=== PATIENT | male | born 1975 | race Caucasian/White ===

== ENCOUNTER 2020-06-03 09:58 | Outpatient (RCR) | payer BC, SELFPAY ==
--- NOTE | 2020-06-03 11:24 | PTOPEVAL ---
Thank you for referring Ryley Smith to [facility].? The patient is scheduled to be seen for therapy? ____x/week for ___ weeks. Please review, sign, date and return this plan of care YORDAN. I agree with and certify that the following plan of care is medically necessary. Referring Physician Date Admitting Provider: Attending Provider: Keyur Mancilla MD Referring Provider: *PT Outpatient Evaluation Start: 06/03/20 10:06 Freq: Status: Active Protocol: Document 06/03/20 10:06 KHALIDA (Rec: 06/03/20 11:24 KHALIDA [email or web address]) Therapy Assessment Status Assessment Status Assessment Status Evaluation Evaluation Information Problem Diagnosis left shoulder adhesive capsulitis Onset 05/27/20 Subjective Information Pt. reports that he felt Query Text:As Reported By Patient/ extreme pain in the left Family shoulder last week. He reports thought he had a pinched nerve. He reports that he has been taking ibuprofen. He reports that it has gotten better over the past week but still something is wrong. He reports stiffness with reaching overhead and behind the head is painful. 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 He reports that his goal is to decrease his pain. 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 Hand Dominance Right Activity of Daily Living Ability Independent Indoor/Home Mobility Independent Community Mobility Independent Stairs Ability Independent Functional Cognition (Planning, Shopping Independent , Taking Medications) Cooking Yes Cleaning Yes Laundry Yes Shopping Yes Driving Yes Pain Assessment Pain Scale Pain Scale Used Numeric (1 - 10) Self Report Pain Assessment Left Shoulder(s) Reported Pain Level 5 Pain Aggravating Factors Exercise/Activity Pain Score Pain Score 5: Self Report Upper Extremity Range of Motion General Upper Extremity Range of Motion Gross Upper Extremity Range of Motion left shoulder flexion 115 Comments degrees left shoulder ER 72 degrees
--- NOTE | 2020-07-21 12:44 | PCPTNOTE ---
Mr. Smith attended a total of 4 treatment sessions from 06/03/20 to 06/11/20. He has failed to return to the clinic and cannot be contacted via phone. He will be discharged from our care. Refer to the last daily note for pt. discharge status. Thank you for the referral of this pt. Sunil Hernandez, MPT
== END 2020-09-01 23:59 | disposition home or self-care (01) ==
LOC: CHSPT 09:58
PROVIDERS: PCP Internal Medicine; Visit Provider Internal Medicine
DX: M75.02 Adhesive capsulitis of left shoulder (principal)
CPT/HCPCS: 97014; 97110; 97161; G0283

== ENCOUNTER 2021-08-15 10:44 | Outpatient (CLI) | payer BC, SELFPAY ==
--- NOTE | ~2021-08-15 | XR_ITS ---
EXAMINATION: XR ankle RT min 3V INDICATION: Right flank pain, initial encounter TECHNIQUE: Four views of the right ankle are obtained. COMPARISON: None available FINDINGS: There is an acute, traumatic, closed, oblique fracture of the distal fibula which extends b elow the level of the tibial plafond. The distal fracture fragment is laterally displaced approximate ly 2 mm. Soft tissue swelling surrounds the fracture. No additional acute osseous abnormality is iden tified. IMPRESSION: 1. Oblique distal fibular fracture extending below the level of the tibial plafond. Reviewed, dictated and finalized at location B. IMPRESSION: 1. Oblique distal fibular fracture extending below the level of the tibial plaf ond.
--- NOTE | ~2021-08-15 | XR_ITS ---
EXAMINATION: XR foot RT min 3V DATE: 08/15/2021 11:20 INDICATION: Right foot pain, initial encounter TECHNIQUE: Dorsoplantar, lateral, and 2 oblique views of the right foot were obtained. COMPARISON: None. FINDINGS: There is an oblique minimally displaced fracture of the distal fibula. Soft tissue swelling surrounds the fracture. There is no fracture, dislocation, or subluxation of the foot. IMPRESSION: 1. No acute osseous abnormality of the foot. 2. Distal fibular fracture. Reviewed, dictated and finalized at location B.
== END 2021-08-15 10:45 | disposition home or self-care (01) ==
PROVIDERS: PCP Internal Medicine; Visit Provider Internal Medicine
DX: T14.90XA Injury, unspecified, initial encounter (principal)
CPT/HCPCS: 73610; 73630

== ENCOUNTER 2021-08-22 09:19 | Outpatient (CLI) | payer BC, SELFPAY ==
--- NOTE | ~2021-08-22 | XR_ITS ---
XR ankle RT min 3V DATE: 08/22/2021 09:39 INDICATION: Right ankle pain TECHNIQUE: 3 views COMPARISON: 08/15/2021 right ankle FINDINGS: There is no significant change in position or alignment of the lateral malleolar fracture w ith one cortical width posterior displacement, no angulation. No other fracture is detected. The ankle mortise is intact. IMPRESSION: No significant change in position or alignment of minimally posteriorly displaced lateral malleolar fracture since 08/15 Reviewed, dictated and finalized at location A. MITH IMPRESSION: No significant change in position or alignment of minimally posteri chema displaced lateral malleolar fracture since 08/15
== END 2021-08-22 09:20 | disposition home or self-care (01) ==
LOC: CHSIMG 09:21
PROVIDERS: PCP Internal Medicine; Visit Provider Orthopaedic Surgery
DX: M25.571 Pain in right ankle and joints of right foot (principal)
CPT/HCPCS: 73610

== ENCOUNTER 2021-09-19 08:18 | Outpatient (CLI) | payer BC, SELFPAY ==
--- NOTE | ~2021-09-19 | XR_ITS ---
EXAMINATION: XR ankle RT min 3V INDICATION: Right ankle fracture follow-up TECHNIQUE: Four views of the right ankle are obtained. COMPARISON: 09/21/2021 FINDINGS: Again seen is a transverse fracture of the distal fibula below the level of the tibial plaf ond. There is increased calcified callus at the fracture site. Minimal soft tissue swelling is seen n ear the fracture. No additional osseous abnormality is identified. There are 2 mm of persistent dorsa l displacement of the distal fracture fragment. IMPRESSION: 1. Right distal fibular fracture with routine healing. Reviewed, dictated and finalized at location A. E TOP TILE SETTER
== END 2021-09-19 08:19 | disposition home or self-care (01) ==
LOC: CHSIMG 08:20
PROVIDERS: PCP Internal Medicine; Visit Provider Orthopaedic Surgery
DX: M25.571 Pain in right ankle and joints of right foot (principal)
CPT/HCPCS: 73610

== ENCOUNTER 2021-10-03 08:02 | Outpatient (CLI) | payer BC, SELFPAY ==
--- NOTE | ~2021-10-03 | XR_ITS ---
XR ankle RT min 3V DATE: 10/03/2021 08:17 INDICATION: Right ankle swelling TECHNIQUE: 4 views COMPARISON: 09/19/2021 right ankle FINDINGS: Minimally posteriorly displaced lateral malleolar fracture is unchanged in position or alig nment since 09/19/2021. There is mild overlying soft tissue swelling. No other fracture of the ankle is evident. Ankle mortise appears intact. There is slight plantar calcaneal enthesopathy. IMPRESSION: No significant change of the lateral malleolar fracture and mild overlying lateral soft t issue swelling since 09/19/2021 Reviewed, dictated and finalized at location B. Y MANAGEMENT SPECIALIST IMPRESSION: No significant change of the lateral malleolar fracture and mild ov erlying lateral soft tissue swelling since 09/19/2021
== END 2021-10-03 08:03 | disposition home or self-care (01) ==
LOC: CHSIMG 08:04
PROVIDERS: PCP Internal Medicine; Visit Provider Orthopaedic Surgery
DX: M25.571 Pain in right ankle and joints of right foot (principal)
CPT/HCPCS: 73610

== ENCOUNTER 2025-01-13 16:31 | Outpatient (CLI) | payer BC, SELFPAY ==
[2025-01-13 17:00] LABS: Basophils Absolute Auto 0.01 K/mm3 (0.00-0.10); Basophils Percent Auto 0.1 % (0.0-1.0); Eosinophils Absolute Auto 0.05 K/mm3 (0.02-0.50); Eosinophils Percent Auto 0.5 % (1.0-6.0); Hematocrit 45.1 % (40.0-54.0); Immature Granulocyte Absolute 0.04 K/mm3 (0.00-0.00); Immature Granulocyte Percent A 0.4 % (0.0-0.0); Lymphocytes Percent Auto 21.3 % (18.0-42.0); Mean Corpuscular HGB Conc 33.3 g/dL (32-36); Mean Corpuscular Hemoglobin 30.2 pg (27.0-31.0); Mean Corpuscular Volume 90.9 fL (78.0-102.0); Mean Platelet Volume 9.5 fl (8.7-11.0); Monocytes Absolute Auto 0.46 K/mm3 (0.10-0.90); Monocytes Percent Auto 4.9 % (2.0-11.0); Neutrophils Absolute Auto 6.83 K/mm3 (1.70-7.20); Neutrophils Percent Auto 72.8 % (50.0-70.0); Platelet Count Result 249 K/mm3 (150-420); Red Blood Count 4.96 M/mm3 (4.70-6.10); White Blood Count 9.4 K/mm3 (4.8-10.8)
[2025-01-13 17:18] LABS: Alanine Aminotransferase 17 U/L (16-63); Albumin Level 3.9 g/dL (3.4-5.0); Alkaline Phosphatase 66 U/L (46-116); Amylase 50 U/L (25-115); Anion Gap 10 mmol/L (4-12); Aspartate Amino Transferase 18 U/L (15-37); Bilirubin,Total 0.7 mg/dL (0.00-1.00); Blood Urea Nitrogen 10 mg/dL (7-18); Calcium 9.1 mg/dL (8.5-10.1); Carbon Dioxide 27 mmol/L (21-32); Chloride 99 mmol/L (98-108); Estimated Glomerular Filt Rate > 60; Glucose 109 mg/dL (70-99); Lipase 44 U/L (16-77); Osmolality Calculated 282 mOsm/kg (285-295); Potassium 3.9 mmol/L (3.5-5.1); Sodium 136 mmol/L (136-145); Total Protein 7.5 g/dL (6.4-8.2)
[2025-01-13 17:28] LABS: Add Urine Microscopic? YES; Bilirubin Urine 1+ (Negative); Blood Urine Negative (Negative); Color Urine Dark Yellow (Yellow); Glucose Urine UA Negative (Negative); Ketones Urine 1+ (Negative); Leukocyte Esterase Ur Negative LEU/UL (Negative); Nitrate Urine Negative (Negative); Protein Urine 1+ (Negative); Specific Grav Ur >= 1.030 (1.010-1.020); pH Urine 5.5 (5.0-8.0)
--- OUTSIDE RECORDS SUMMARY | 2025-01-13 17:33 | XMS_ITS | Clinical Summary ---
Author Organization 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 Gender Identity Not on file Sexual Orientation Not on file Plan of Treatment Health Maintenance Due Date Last Done Comments Colorectal Cancer Screening Colonoscopy (10 Years) 1975 Annual Physical 1978 Hepatitis C 1993 DTaP, Tdap and Td Vaccines ( 1 - Tdap) 1994 Hepatitis B Vaccines (1 of 3 - 19+ 3-dose series) 1994 COVID-19 Vaccine ( - 2023-2 5 season) 2024 Meningococcal B Vaccine Aged Out No l onger eligible based on patient's age to complete this topic Meningococcal Vaccine Aged Out No gwen betty eligible based on patient's age to complete this topic Pneumococcal Vaccine: Pediat rics (0 to 5 Years) and At-Risk Patients (6 to 64 Years) Aged Out No longer eligible b ased on patient's age to complete this topic RSV Immunizations Under 20 Months Aged Out No longer eligible based on patient's age to complete this topic
--- OUTSIDE RECORDS SUMMARY | 2025-01-13 17:33 | XMS_ITS | Clinical Summary ---
Author Organization [facility] [employer] Address [address] [place] [address] Care Team Providers Care High School Assistant Principal Name Role Phone Neel Smart DO Unavailable [phone] Keyur Mancilla MD Primary Care Provider [phone] Source Comments [facility] [employer],non-owned Affiliates and Associated Physician Practices is amultiple site organization consisting of ambulatory clinics and hospital sitesin [place] and [place]. This disclosure is being madepursuant to the Care Everywhere program and may not contain all information available regarding this patient. Last updated 18.[facility] [employer] Allergies No known active allergies Medications * Be aware that medications may not be up to date on this document. Alwaysverify current medications with the patient. Medication Sig Dispensed Refills Start Date End Date Status dexamethasone (DECADRON) 2 MG tablet Take 2 mg by mouth once daily 12/26/2018 Active cyclobenzaprine (FLEXERIL) 10 MG tablet Take 10 mg by mouth as needed 12/26/2018 Active diclofenac sodium EC (VOLTAREN) 75 MG tablet Take 75 mg by mouth once daily 12/26/2018 Active Naproxen Sodium (ALEVE) 220 MG Take 220 mg by mouth as needed Active methylPREDNISolone (MEDROL DOSEPAK) 4 MG tablet Take 1 tablet by mouth as directed 1 dose pack 21 tablet 01/07/2019 Active meloxicam (MOBIC) 15 MG tablet Take 1 tablet by mouth once daily 30 tablet 01/07/2019 Active Social History Tobacco Use Types Packs/Day Years Used Date Smoking Tobacco: Never Assessed Sex and Gender Information Value Date Recorded Sex Assigned at Not on file Gender Identity Not on file Sexual Orientation Not on file Plan of Treatment Health Maintenance Due Date Last Done Comments COLOGDONTARD (AGES 45-75) - COL ON CA SCREENING 1975 COLON MONITORING 1975 COLONOSCOPY - COLON CA SCREENING 1975 CT COLONOGRAPHY - COLON CA SCREENING 1975 Colorectal Cancer Screening 1975 FIT - COLON CA SCREENING 1975 FLEX SIG - COLON CA SCREENING 1975 LIPID TESTING 1975 HIV SCREENING 1990 HEPATITIS C SCREENING 03/26/1993 DTAP/TDAP/TD VACCINES (1 - Tdap) 1994 HEPATITIS B VACCINE (1 of 3 - 19+ 3-dose series) 1994 COVID-19 VACCINE (1 - 2023-2 5 season) 2024 INFLUENZA VACCINE (#1) 2024 DEPRESSION SCREENING 10/15/2024 ZOSTER VACCINE (1 of 2) 2025 HIB VACCINE Aged Out No longer eligi ble based on patient's age to complete this topic HPV VACCINE Aged Out No longer eligi ble based on patient's age to complete this topic MENINGOCOCCAL (Group B) VACC INE SHARED DECISION-MAKING Aged Out No longer eligibl e based on patient's age to complete this topic MENINGOCOCCAL GROUPS A/C/Y/W VACCINE Aged Out No longer eligible b ased on patient's age to complete this topic PNEUMOCOCCAL VACCINE Aged Out No long er eligible based on patient's age to complete this topic Care Teams High School Assistant Principal Relationship Specialty Start Date End Date Keyur Mancilla MD PCP - General Internal Medicine 01/07/19 Neel Smart DO Orthopedic Surgery 01/01/19
[2025-01-13 17:34] LABS: Appearance Urine Cloudy (Clear); Bacteria Urine Trace /hpf; Mucus Urine Moderate /lpf; RBC Urine None seen /hpf (0-2); Squamous Epithelial Cell Urine Rare /hpf (Few); WBC Urine None seen /hpf (0-3)
[2025-01-15 16:35] LABS: H pylori, Urea Breath DETECTED (NOT DETECTED)
== END 2025-01-13 16:32 | disposition home or self-care (01) ==
LOC: CHSLAB 16:35
PROVIDERS: PCP Internal Medicine; Visit Provider Internal Medicine
DX: R11.0 Nausea (principal); R10.13 Epigastric pain
CPT/HCPCS: 36415; 80053; 81001; 82150; 83013; 83605; 83690; 85025

== ENCOUNTER 2025-01-20 09:31 | Outpatient (CLI) | payer BC, SELFPAY ==
--- NOTE | ~2025-01-20 | CT_ITS ---
CT of the Abdomen and Pelvis: Indication: Nausea, vomiting, diarrhea Technique: 2.5 mm axial scans were obtained through the abdomen and pelvis following intravenous adm inistration of 100 cc of Omnipaque 350. Dose reduction technique was used on this scan by utilizing a utomated exposure control and iterative reconstruction technique. The dose-length product (DLP) was 3 97.45 mGy-cm. Findings: Scans through the lung bases are unremarkable. The liver, spleen, pancreas, gallbladder, adrenals and kidneys are within normal limits. There are at herosclerotic calcifications of the aorta. No lymphadenopathy. No bowel obstruction or bowel wall thickening. Possible constipation. Images through the pelvis were performed. Urinary bladder unremarkable. Prostate gland enlarged. No a scites. Impression: No acute abnormality. Possible constipation. Enlarged prostate gland. Reviewed, dictated and finalized at location . Impression: No acute abnormality. Possible constipation. Enlarged prostate gland.
--- OUTSIDE RECORDS SUMMARY | 2025-01-20 10:26 | XMS_ITS | Clinical Summary ---
Author Organization [facility] Address [address] [place] [address] Care Team Providers Care Bar Assistant Name Role Phone Neel Smart DO Unavailable [phone] Keyur Mancilla MD Primary Care Provider [phone] Source Comments [facility],non-owned Affiliates and Associated Physician Practices is amultiple site organization consisting of ambulatory clinics and hospital sitesin [place], [place], [place] and [place]. This disclosure is being madepursuant to the Care Everywhere program and may not contain all information available regarding this patient. Last updated 18.[facility] Allergies No known active allergies Medications * [...] age to complete this topic Care Teams Bar Assistant Relationship Specialty Start Date End Date Keyur Mancilla MD PCP - General Internal Medicine 01/07/19 Neel Smart DO Orthopedic Surgery 01/01/19
--- OUTSIDE RECORDS SUMMARY | 2025-01-20 10:26 | XMS_ITS | Clinical Summary ---
Author Organization [facility] Address [facility] [address] [place] [address] Care Team Providers Care Invertebrate Paleontologist Name Role Phone Unavailable Primary Care Provider Unavailabl e Social History Tobacco Use Types Packs/Day Years Used Date Smoking Tobacco: Never Assessed Sex and Gender Information Value Date Recorded Sex Assigned at Not on file Legal Sex Male 5:51 PM RISK ASSESSOR Gender Identity Not on file Sexual Orientation [...]
== END 2025-01-20 09:32 | disposition home or self-care (01) ==
LOC: CHSIMG 09:34
PROVIDERS: PCP Internal Medicine; Visit Provider Internal Medicine
DX: R10.9 Unspecified abdominal pain (principal); N40.0 Benign prostatic hyperplasia without lower urinary tract symptoms
CPT/HCPCS: 74177; Q9967

== ENCOUNTER 2025-08-31 01:10 | Day surgery (SDC) | payer BC, SELFPAY ==
[2025-08-19 08:28] VITALS: BMI 23.8
--- OUTSIDE RECORDS SUMMARY | 2025-08-31 01:13 | XMS_ITS | Clinical Summary ---
Author Organization [facility] [employer] Address [address] [place] [address] Care Team Providers Care Flea Market Seller Name Role Phone eNel Smart DO Unavailable Keyur Mancilla MD Primary Care Provider [phone] Source Comments [facility] [employer],non-owned Affiliates and Associated Physician Practices is amultiple site organization consisting of ambulatory clinics and hospital sitesin [place], [place], [place] and [place]. This disclosure is being madepursuant to the Care Everywhere program and may not contain all information available regarding this patient. Last updated 18.[facility] Allergies No known active allergies Medications * Be aware that medications may not be up to date on this document. Alwaysverify current medications with the patient. dexamethasone (DECADRON) 2 MG tablet Take 2 mg by mouth once daily 12/26/2018 Active cyclobenzaprine (FLEXERIL) 10 MG tablet Take 10 mg by mouth as needed 12/26/2018 Active diclofenac sodium EC (VOLTAREN) 75 MG tablet Take 75 mg by mouth once daily 12/26/2018 Active Naproxen Sodium (ALEVE) 220 MG Take 220 mg by mouth as needed Active methylPREDNISol one (MEDROL DOSEPAK) 4 MG tablet Take 1 [...] at Not on file Legal Sex Male 9:47 AM CDT Gender Identity Not on file Sexual Orientation Not on file Plan of Treatment Health Maintenance Due Date Last Done Comments COLOGUARD (AGES 45-75) - COL ON CA SCREENING [...] of 3 - 19+ 3-dose series) 1994 DEPRESSION SCREENING 10/15/2024 PNEUMOCOCCAL VACCINE 50+ (1 of 1 - PCV) 2025 ZOSTER VACCINE (1 of 2) 2025 COVID-19 VACCINE (1 - 2024-2 6 season) 2025 INFLUENZA VACCINE (#1) 2025 HIB VACCINE Aged Out No longer [...] on patient's age to complete this topic Insurance ANTHEM Care Teams Flea Market Seller Relationship Specialty Start Date End Date Keyur Mancilla MD PCP - General Internal Medicine 01/07/19 Neel Smart DO Orthopedic Surgery 01/01/19
--- OUTSIDE RECORDS SUMMARY | 2025-08-31 01:13 | XMS_ITS | Clinical Summary ---
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 Gender Identity Not on file Sexual Orientation Not on file Plan of Treatment Health Maintenance Due Date Last Done Comments Colorectal Cancer Screening Colonoscopy (10 Years) 1975 Annual Physical 1978 Hepatitis C 1993 DTaP, Tdap and Td Vaccines ( 1 - Tdap) 1994 Hepatitis B Vaccines (1 of 3 - 19+ 3-dose series) 1994 Pneumococcal Vaccine: 50+ Ye ars (1 of 1 - PCV) 2025 Zoster Vaccines (1 of 2) 2025 COVID-19 Vaccine ( - 2024-2 6 season) 2025 Influenza Adult (#1) 2025 Hepatitis A Vaccines Aged Out No long er eligible based on patient's age to complete this topic Meningococcal B Vaccine Aged Out No l onger eligible based on patient's age to complete this topic Meningococcal Vaccine Aged Out No gwen betty eligible based on patient's age to complete this topic RSV Immunizations Under 20 Months Aged Out No longer eligible based on patient's age to complete this topic
[2025-08-31 10:19] VITALS: BP 126/97; RESP 16; TEMP 36.3; O2SAT 98
[2025-08-31] MEDS: LACTATED RINGERS 1,000 ML 150 ML IV CONT (10:30)
--- NOTE | 2025-08-31 10:53 | WPDANESEPPF ---
Anes - Initial Pre Proc Eval Procedure: Operation Date: 08/31/25 11:30 Proposed Procedures p Esophagogastroduodenoscopy - Pillo Hauser DO Date/Time: 08/31/25 10:53 Surgeon: Pillo Hauser DO Pre Op Diagnosis: peptic ulcer Patient Data Age: 50 Gender: M Height: 1.93 m Weight: 85.5 kg Last Vital Signs Temp 36.3 C L 08/31/25 10:19 Resp 16 08/31/25 10:19 BP 126/97 H 08/31/25 10:19 Pulse Ox 98 08/31/25 10:19 O2 Del Method Room Air 08/31/25 10:19 Allergies Allergy/AdvReac Type Severity Reaction Status Date / Time No Known Allergies Allergy Verified 08/31/25 10:17 Home Medications ?Medication ?Instructions ?Recorded ?Confirmed ?Type No Home Medications 08/19/25 08/31/25 History Patient hx anesthesia problems: none Family hx anesthesia problems: none Results Review: All pre-operative results and documents have been reviewed as part of the pre-operative evaluation. 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 [employer] Gender identity (if verbalized by the patient): Male Spiritual care concerns: No Anes - Eval Final PreProcedure Day of Procedure 08/31/25 10:53 Patient weight: normal Heart: regular rate and rhythm Lungs: clear to auscultation and normal air movement Airway: Mallampati scale class II Neurological: alert and oriented Last oral intake: >/= 8 hours ASA classification: III Emergent: no Anesthetic plan: proceed Anesthesia type and monitoring: general GIVS and standard monitoring Results Review: All pre-operative results and documents have been reviewed as part of the pre-operative evaluation. Informed Consent: The patient's anesthetic plan and its attendant risks and benefits were discussed with the patient/family/POA. Questions were solicited and answers provided to the satisfaction of the patient/family/POA.
--- NOTE | 2025-08-31 11:28 | PM.IMHP ---
H&P: HPI History of Present Illness Date/Time: 08/31/25 11:28 Chief Complaint: Peptic ulcer Narrative: This is a 50-year-old man who presents for EGD. He has a history of epigastric pain with indigestion and heartburn and his primary care was suspicious ulcer. Has never had an EGD before. He is not currently on any antacids. Review of Systems Review of Systems: All systems reviewed & are unremarkable except as noted in HPI and below Constitutional: Constitutional: Denies chills, Denies fever(s), Denies headache(s) and Denies weight loss Eyes: Eyes: Denies change in vision ENT: Denies dizziness, Denies headache(s), Denies neck mass and Denies throat swelling Cardiovascular: Cardiovascular: Denies chest pain, Denies lightheadedness and Denies dyspnea Respiratory: Respiratory: Denies cough, Denies dyspnea and Denies wheezing Gastrointestinal: Gastrointestinal: Denies abdominal pain, Denies change in bowel habits, Denies nausea and Denies vomiting Genitourinary: Genitourinary: Denies hematuria and Denies dysuria Musculoskeletal: Musculoskeletal: Reports as per HPI Integumentary/Breasts: Skin/Breast: Reports as per HPI Neurologic: Denies dizziness and Denies headache(s) Allergic/Immunologic: Allergic/Immunologic: Denies throat swelling and Denies wheezing [facility] Past Medical History Medical History Fracture of distal end of fibula Social History Social History (Updated 08/31/25 @ 10:53 by Anselmo Oates, ) Smoking packs per day: 1 Smoking cigarettes per day: 20.0 Years smoked: 20 Smoking pack-years: 20.00 Tobacco type: cigarettes Alcohol intake: never Substance use: current Substance use type: marijuana Other substance usage details: daily Living arrangements: with family Occupation/Education: occupation 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 [employer] Gender identity (if verbalized by the patient): Male Spiritual care concerns: No Meds Home Medications and Allergies Home Medications ?Medication ?Instructions ?Recorded ?Confirmed ?Type No Home Medications 08/19/25 08/31/25 History Allergies Allergy/AdvReac Type Severity Reaction Status Date / Time No Known Allergies Allergy Verified 08/31/25 10:17 Vital Signs Vital Signs - 24 hr 08/31/25 10:19 Temperature 97.4 F L Respiratory Rate 16 Blood Pressure 126/97 H Pulse Oximetry 98 Oxygen Delivery Room Air Exam Const: General: no acute distress and alert Orientation/consciousness: patient oriented x3 HENMT: Head: normocephalic and atraumatic Ears: hearing grossly normal bilaterally Face/Nose/Sinus: Normal nares present Mouth: Yes Normal oral and palatal mucosa present Eyes: Periorbital: periorbital findings normal Sclera: sclerae normal EOM: EOMs intact bilaterally Neck: Neck: normal visual inspection, no lymphadenopathy and trachea midline Chest: Chest palpation & inspection: normal inspection of the chest Resp: Effort & Inspection: normal respiratory effort Auscultation: clear to auscultation bilaterally Cardio: Jugular venous distension: no JVD Rate: regular rate Rhythm: regular rhythm Heart sounds: S1 normal heart sound present and S2 normal heart sound present Peripheral pulses: Peripheral pulses 2+ throughout GI: Inspection: normal to inspection GI Palp: Yes Soft to palpation, No Tenderness to palpation present (GI), No Guarding due to palpation present (GI) and No Rebound tenderness present Percussion: Yes normal to percussion Auscultation: normal bowel sounds : General: Yes no CVA tenderness Back/Spine/Pelvis: Back: no CVA tenderness Neuro: General: patient oriented x3, no focal motor deficits and CN's II-XI intact bilaterally Cognition (Neuro): normal cognition Speech: normal speech Motor exam (neuro): 5/5 motor strength present throughout Extrem: General: capillary refill normal and no clubbing, cyanosis or edema Assessment and Plan Assessment and plan (1) GERD (gastroesophageal reflux disease): Code(s): K21.9 - Gastro-esophageal reflux disease without esophagitis Status: Acute Assessment and Plan: I have recommended EGD. I have discussed the procedure, risks, benefits, and alternatives. Questions were answered. Patient is agreeable to proceed.
--- NOTE | 2025-08-31 11:44 | S_PTH ---
PATIENT: Ryley Smith LOC: [facility] #:[id number] AGE/SX: 50/M ROOM: RE08/31/[address]: Pillo Hauser DO : 1975 BED: DIS: 08/31/2025 SPEC #: [id number] RECD: 08/31/25 11:49 STATUS: ALEISHA REQ #: [id number] RANDELL: 08/31/25 11:[address]: Pillo Hauser DEPT: [facility] Surgical RECD BY: Tesfaye Ulloa ENTERED: 08/31/25 11:49 SP TYPE: Surgical OTHR DR: Keyur Mancilla MD Tissues: A - Esophageal Biopsy B - Small Bowel Bx Procedures: Hematoxylin and Eosin Stain Gross and Microscopic Level 4
[2025-08-31 11:45] VITALS: BP 100/59; PULSE 65; RESP 16; O2SAT 94
[2025-08-31 11:55] VITALS: BP 106/67; PULSE 60; RESP 16; O2SAT 100
[2025-08-31 12:05] VITALS: BP 108/70; PULSE 60; RESP 16; O2SAT 100
[2025-08-31 12:59] LABS: HPYLORIRESULT Negative (Negative)
== END 2025-08-31 12:16 | disposition home or self-care (01) ==
PROVIDERS: PCP Internal Medicine; Visit Provider Surgery
PROC: 0DJ08ZZ Inspection of Upper Intestinal Tract, Via Natural or Artificial Opening Endoscopic (ICD-10-PCS; CPT 43239; principal; 2025-08-31 11:30)
DX: K21.00 Gastro-esophageal reflux disease with esophagitis, without bleeding (principal); K44.9 Diaphragmatic hernia without obstruction or gangrene; K29.80 Duodenitis without bleeding; F17.290 Nicotine dependence, other tobacco product, uncomplicated; F12.90 Cannabis use, unspecified, uncomplicated
CPT/HCPCS: 43239; 87081; 88305; J2003; J2704; J7120